=== PATIENT | male | born 1970 | race African-American/Black ===

== ENCOUNTER 2016-12-02 14:48 | Inpatient (IN) | payer OTHER ==
[~2016-12-02] VITALS: Ht 185.4 cm; Wt 120.0 kg
[2016-12-02] VITALS (17 sets, daily range): BP systolic 100–151; BP diastolic 55–84; PULSE 66–86; RESP 12–22; TEMP 97.8; Ht 185.4 cm; Wt 120.0 kg
[~2016-12-02 14:48] MED LIST: BEN50 PO; BENA20TA48 PO; CEFAZOLIN 1 GM INJ ONE; EPIN0.3P4 INJ; NORCO; PRED20TA PO; ZOC10 PO
[2016-12-02] MEDS ORDERED: morphine 4 MG/ML VIAL IV STA (15:15)
[2016-12-02] MEDS ORDERED: SOD CHLORIDE 0.9% 1,000 ML IV STA (15:15)
[2016-12-02] MEDS ORDERED: ONDANSETRON 4 MG INJ IV STA (15:15)
[2016-12-02 15:49] LABS: BASOPHILS % 0.3 % (0.0-2.0); EOSINOPHILS % 0.3 % (0.0-7.0); HEMOGLOBIN 15.1 g/dl (14.0-18.0); LYMPHOCYTES # 1.4 10^3/ul (0.8-2.9); LYMPHOCYTES % 16.2 % (15.0-51.0); MEAN CORPUSCULAR HEMOGLOBIN 27.9 pg (29.0-33.0); MEAN CORPUSCULAR HGB CONC 32.9 g/dl (32.0-37.0); MEAN PLATELET VOLUME 10.8 fl (7.4-10.4); MONOCYTE # 0.1 10^3/ul (0.3-0.9); MONOCYTES % 1.3 % (0.0-11.0); NEUTROPHIL # 7.3 10^3/ul (1.6-7.5); NEUTROPHILS % 81.9 % (39.0-77.0); PLATELET COUNT 174 10^3/UL (140-440); RED BLOOD COUNT 5.41 10^6/ul (4.70-6.10); RED CELL DISTRIBUTION WIDTH 14.6 % (11.5-14.5); UNCORRECTED WBC 8.9 10^3/ul (4.8-10.8); WHITE BLOOD COUNT 8.9 10^3/ul (4.8-10.8)
[2016-12-02 16:00] LABS: ALBUMIN 4.6 g/dl (3.3-4.9); CONDITION 1; LH ANALYZER COMMENTS 1; NUCLEATED RED BLOOD CELLS # 0.2 10^3/ul (0.0-0.0); SUSPECT 1
[2016-12-02 16:01] LABS: POTASSIUM 3.5 mmol/L (3.5-5.1)
--- NOTE | 2016-12-02 16:01 | ERD ---
ER Documentation Chief Complaint Date/Time DATE: 12/02/16 TIME: 15:59 Chief Complaint NAUSEA, VOMITING, ONSET LAST NIGHT, RIGHT GROIN PAIN, HX OF HERNIA HPI 46-year-old male who is a very poor historian and poorly cooperative with history. It appears that the patient had sudden onset of nausea and vomiting yesterday evening. The patient does have a history of right inguinal hernia repair. He is describing right lower quadrant right inguinal pain that is moderate to severe. The vomiting is nonbloody nonbilious. He denies any diarrhea. He did eat [place] [employer]. last night. ROS All systems reviewed and are negative except as per history of present illness. Medications Home Meds Reported Medications Hydrocodone Bit-Acetaminophen (Hydrocodone Bit-APAP) 5-325MG Tablet, 1 TAB PO BID Y for PAIN, TAB 12/02/16 Losartan Potassium* (Losartan Potassium*) 100 Mg Tablet, 100 MG PO DAILY, TAB 12/02/16 Amlodipine Besylate* (Norvasc*) 5 Mg Tablet, 5 MG PO DAILY, TAB 12/02/16 Simvastatin* (Zocor*) 40 Mg Tablet, 40 MG PO QHS, #30 TAB 12/02/16 Discontinued Reported Medications [[place]] No Conflict Check, PRN 05/30/14 Simvastatin (Simvastatin) 10 Mg Tablet, 10 MG PO HS, TAB 05/30/14 Benazepril Hcl* (Benazepril Hcl*) 20 Mg Tablet, 25 MG PO DAILY, TAB 05/30/14 Discontinued Scripts Epinephrine (Epipen 2-Estuardo) 0.3 Mg/0.3 Ml Pen.injctr, 1 EA INJ ONCE Y for ALLERGIC REACTION, #1 EA Prov:AMY ESTEVES PA-C 06/09/16 Diphenhydramine Hcl* (Benadryl*) 50 Mg Cap, 50 MG PO Q6 Y for swelling, #30 CAP Prov:AMY ESTEVES PA-C 06/09/16 Prednisone* (Prednisone*) 20 Mg Tab, 40 MG PO DAILY for 4 Days, TAB Prov:AMY ESTEVES PA-C 06/09/16 Allergies Allergies: Coded Allergies: No Known Allergy (Unverified , 12/02/16) PMhx/Soc History of Surgery: Yes (HERNIA) Anesthesia Reaction: Yes (DIFFICULT INTUBATION) Hx Neurological Disorder: No Hx Respiratory Disorders: No Hx Cardiac Disorders: No Hx Psychiatric Problems: No Hx Miscellaneous Medical Probl: No Hx Alcohol Use: Yes (CONIAC 1 GLASS ONCE IN A WHILE) Hx Substance Use: Yes (MARJUANA LAST ON 06/08/16 0900) Hx Tobacco Use: No FmHx Family History: No diabetes Physical Exam Vitals Vital Signs Date Time Temp Pulse Resp B/P Pulse Ox O2 Delivery O2 Flow Rate FiO2 12/02/16 15:29 97.5 58 17 191/104 98 Physical Exam General: Diaphoretic and uncomfortable Head: Normocephalic, atraumatic. Eyes: Pupils equally reactive, EOM intact ENT: Moist mucous membranes Neck: Supple, no lymphadenopathy Respiratory: Lungs clear bilaterally, no distress Cardiovascular: RRR, no murmurs, rubs, or gallops Abdominal: Soft, focal tenderness of the right lower quadrant and also to the right inguinal region, no focal masses or hernias palpated : Uncircumcised, slightly high riding right testicle, no significant swelling limited reflex exam MSK: No edema, no unilateral swelling, 5/5 strength Neurologic: Alert and oriented, moving all extremities, normal speech, no focal weakness, no cerebellar signs Skin: No rash Psych: Normal mood Result Diagram: 12/02/16 1545 12/02/16 1545 Results 24 hrs Laboratory Tests Test 12/02/16 15:45 Alanine Aminotransferase (ALT/SGPT) 25IU/L Albumin 4.6g/dl Albumin/Globulin Ratio 1.09 Alkaline Phosphatase 80IU/L Anion Gap 21 Aspartate Amino Transf (AST/SGOT) 27IU/L Basophils # 0.010^3/ul Basophils % 0.3% Blood Morphology Comment Blood Urea Nitrogen 13mg/dl Calcium Level 9.6mg/dl Carbon Dioxide Level 26mmol/L Chloride Level 105mmol/L Creatinine 1.16mg/dl Direct Bilirubin 0.00mg/dl Eosinophils # 0.010^3/ul Eosinophils % 0.3% Globulin 4.20g/dl Glucose Level 100mg/dl Hematocrit 46.0% Hemoglobin 15.1g/dl Indirect Bilirubin 0.2mg/dl Lipase 47U/L Lymphocytes # 1.410^3/ul Lymphocytes % 16.2% Mean Corpuscular Hemoglobin 27.9pg Mean Corpuscular Hemoglobin Concent 32.9g/dl Mean Corpuscular Volume 85.0fl Mean Platelet Volume 10.8fl Monocytes # 0.110^3/ul Monocytes % 1.3% Neutrophils # 7.310^3/ul Neutrophils % 81.9% Nucleated Red Blood Cells # 0.210^3/ul Nucleated Red Blood Cells % 2.0/100WBC Platelet Count 36369^3/UL Potassium Level 3.5mmol/L Red Blood Count 5.4110^6/ul Red Cell Distribution Width 14.6% Sodium Level 148mmol/L Total Bilirubin 0.2mg/dl Total Protein 8.8g/dl White Blood Count 8.910^3/ul Current Medications Medications (Trade) Dose Ordered Sig/Pia Route PRN Reason Start Time Stop Time Status Last Admin Dose Admin Sodium Chloride (NS) 1,000 ml @ 1,000 mls/hr Q1H STAT IV 12/02/16 15:15 12/02/16 16:14 DC 12/02/16 15:55 Morphine Sulfate (morphine) 4 mg ONCE STAT IV 12/02/16 15:15 12/02/16 15:18 DC 12/02/16 15:55 Ondansetron HCl (Zofran Inj) 4 mg ONCE STAT IV 12/02/16 15:15 12/02/16 15:18 DC 12/02/16 15:54 Procedures/MDM EKG, MONITORS, & DIAGNOSTIC IMAGING: CT abdomen and pelvis: IMPRESSION: 1. There is a 4 mm right mid ureteral calculus resulting in mild to moderate right hydroureter and hydronephrosis. 2. Additional numerous small nonobstructing bilateral renal calculi. 2. Bilateral renal low density lesions likely cysts. 4. No evidence of intra-abdominal free air fluid abscesses or lymphadenopathy. . RPTAT:AAJJ Ultrasound scrotum: IMPRESSION: 1. No flow identified in the right testis consistent with testicular torsion. 2. Small left hydrocele. 3. Small right epididymal cyst. Call report: A call report was made to MICHELLE Grande at approximately 04:30 p.m. on 12/02/2016. RPTAT: AA LAB INTERPRETATION: No significant hepatobiliary obstruction MEDICAL DECISION MAKING: The patient is diaphoretic and appears to be uncomfortable. He has right lower quadrant abdominal pain. This could represent possible acute appendicitis however given the patient's hernia surgical history consider possible inguinal hernia. I cannot palpate a hernia but the patient has tenderness along the inguinal tract. The patient does describe testicular pain but his pain seems to be more elevated from the scrotum. Consider possible torsion therefore ultrasound imaging would be beneficial. Symptoms started around 9 AM this morning. The patient will benefit from laboratory testing and CT imaging of the abdomen and pelvis. Also consider possible bowel obstruction. ER COURSE: The patient's ultrasound was reported as possible torsion with no flow noted. The call was noted around [address] Angel was notified and at the bedside by 4:45 PM. He is evaluated the patient and feel the patient would benefit from being taken to the operating for exploration, detorsion and likely testicular fixation. CT imaging is pending at this time however we have a clear etiology for the patient's pain. It is unlikely that the patient has incarcerated hernia or bowel obstruction at this time. The admitting team will follow up on CAT scan imaging. The patient was taken emergently to the operating room by Dr. Angel. 5:[address] shows evidence of a right-sided 4 mm stone. This could be contributing his pain. I will be out of the patient has 2 diagnoses concurrently, Dr. Angel notified. However given the concern for possible torsion and no flow to the right testicle detorsion would be indicated. I kept the patient and/or family informed of laboratory and diagnostic imaging results throughout the emergency room course. DISPOSITION PLAN: Emergently taken to the operating room CONSULTATION: Accepting care team and consultations: I discussed the current laboratory data, diagnostic imaging and emergency care provided. Admitting team: Dr. Maxwell Admitting team indication: Insurance directed Consulting services: Dr. Angel, urology Critical Care Note: Total time: 30 minutes Indication/Organ System Threat: Right testicular torsion I spent the above amount of critical care time with the patient, not including billable procedures. This included chart review, consultations, repeat bedside evaluations, and titration of appropriate medications to prevent cardiopulmonary or respiratory collapse. Departure Diagnosis: Primary Impression: Testicular torsion Additional Impressions: Nausea and vomiting Vomiting type: unspecified Vomiting Intractability: unspecified Qualified Code: R11.2 - Nausea and vomiting, intractability of vomiting not specified, unspecified vomiting type Ureterolithiasis Condition: MARK Mariscal MD Dec 02, 2016 16:01
[2016-12-02 16:03] LABS: ALBUMIN/GLOBULIN RATIO 1.09; BILIRUBIN,INDIRECT 0.2 mg/dl (0-1.1); BILIRUBIN,TOTAL 0.2 mg/dl (0.2-1.3); CREATININE 1.16 mg/dl (0.61-1.24); TOTAL PROTEIN 8.8 g/dl (6.1-8.1)
[2016-12-02 16:04] LABS: CALCIUM 9.6 mg/dl (8.4-10.2)
--- NOTE | 2016-12-02 16:29 | RADRPT ---
PROCEDURE: Scrotal ultrasound CLINICAL INDICATION: Scrotal pain TECHNIQUE: Scrotal ultrasound was performed in multiple obliquities. Balderrama scale and color imaging was performed. Images were reviewed on high resolution PACS monitors. COMPARISON: None available FINDINGS: The testes are normal in size and echogenicity. There is no definitive flow identified in the right testis. There is normal flow in the left testis. No testicular mass or cyst is identified. There i s a small left hydrocele. There is no definite right hydrocele. Normal flow seen epididymides. There is a 3 mm right epididymal cyst.. There is no evidence for a varicocele. IMPRESSION: 1. No flow identified in the right testis consistent with testicular torsion. 2. Small left hydrocele. 3. Small right epididymal cyst. Call report: A call report was made to MICHELLE Grande at approximately 04:30 p.m. on 12/02/2016. RPTAT: AA .Jordan Gallegos MD, Date Time Electronically viewed and signed by .Jordan Gallegos MD, MD on 12/02/2016 16:29 .B/
[2016-12-02] MEDS ORDERED: SIMV40TA2 PO (16:47)
[2016-12-02] MEDS ORDERED: AMLO5TAB4 PO (16:48)
[2016-12-02] MEDS ORDERED: LOSA100T7 PO (16:49)
[2016-12-02] MEDS ORDERED: HYDR-3498 PO (16:51)
--- NOTE | 2016-12-02 17:10 | RADRPT ---
PROCEDURE: CT Abdomen and Pelvis without contrast. CLINICAL INDICATION: Lower abdominal pain TECHNIQUE: Axial imaging was obtained through the abdomen pelvis without intravenous contrast admi nistration using a multi-slice CT scanner. Standard CT scan of the pelvis without contrast protocol s were performed.The total exam CTDI equals 20.8 mGy and the total exam DLP equals 1420.82 mGy-cm. COMPARISON: None. FINDINGS: There is a 4 mm mid right ureteral calculus resulting in mild to moderate right hydronephrosis and hydroureter. There are multiple bilateral small nonobstructing renal calculi. No evidence of left hydronephrosis. The urinary bladder appears unremarkable. In the into the right kidney is a 1.5 cm low density lesion likely a cyst. In the medial inferior left kidney is a 0.6 cm low density lesio n likely a cyst. No other ventral masses bilaterally. The liver spleen pancreas and adrenal glands are normal in size configuration without focal lesions. New the gallbladder is unremarkable. Ther e is no evidence of biliary ductal dilation. Negative for intra-abdominal free air free fluid absce sses or lymphadenopathy. The right left testes are seen within the right left inguinal canals. Ap mmend clinical correlation. There is atherosclerotic vascular disease of the abdominal aorta but no aneurysm or periaortic fluid collections. There is cylindrical bronchiectasis involving the lung bases. There is parenchymal change at the left base consistent with scarring. The lung bases worse unremarkable. There are degenerative changes lower thoracic and lumbar spine. The osseous structu res are otherwise unremarkable. IMPRESSION: 1. There is a 4 mm right mid ureteral calculus resulting in mild to moderate right hydroureter and hydronephrosis. 2. Additional numerous small nonobstructing bilateral renal calculi. 2. Bilateral renal low density lesions likely cysts. 4. No evidence of intra-abdominal free air fluid abscesses or lymphadenopathy. . RPTAT:AAJJ Physician Savanah Date Time Electronically viewed and signed by Physician Savanah on 12/02/2016 17:09 /
--- NOTE | 2016-12-02 17:26 | CONS ---
Date/Time of Note Date/Time of Note DATE: 12/02/16 TIME: 17:20 Consultation Date/Type/Reason Admit Date/Time This is Dr. Bang Angel dictating a urology consultation on Bo Kay This is a 46-year-old black male who developed acute onset of right-sided lower abdominal and testicular pain this morning while lying in bed He came to the [facility] emergency room where a scrotal ultrasound showed a high riding right testicle with no flow. Physical examination Patient is a healthy-appearing black male who I examined in the CT exam room. His abdomen is soft no abdominal masses no CVA tenderness. The right testicle is extremely tender though soft and minimally swollen however it is somewhat high riding left testicle is atrophic. Impression is right-sided testicular torsion documented on scrotal ultrasound. Plan the patient will go urgently to surgery for right sided testicular detorsion and bilateral testicular fixation. Patient understands the procedure potential risks complications agrees to proceed and I feel is well-informed. Social History Smoking Status: Current some day smoker Exam/Review of Systems Vital Signs Vitals Vital Signs Date Time Temp Pulse Resp B/P Pulse Ox O2 Delivery O2 Flow Rate FiO2 12/02/16 15:29 97.5 58 17 191/104 98 Results Result Diagram: 12/02/16 1545 12/02/16 1545 Results 24 hrs Laboratory Tests Test 12/02/16 15:45 Alanine Aminotransferase (ALT/SGPT) 25 Albumin 4.6 Albumin/Globulin Ratio 1.09 Alkaline Phosphatase 80 Anion Gap 21 H Aspartate Amino Transf (AST/SGOT) 27 Basophils # 0.0 Basophils % 0.3 Blood Morphology Comment Blood Urea Nitrogen 13 Calcium Level 9.6 Carbon Dioxide Level 26 Chloride Level 105 Creatinine 1.16 Direct Bilirubin 0.00 Eosinophils # 0.0 Eosinophils % 0.3 Globulin 4.20 H Glucose Level 100 Hematocrit 46.0 Hemoglobin 15.1 Indirect Bilirubin 0.2 Lipase 47 Lymphocytes # 1.4 Lymphocytes % 16.2 Mean Corpuscular Hemoglobin 27.9 L Mean Corpuscular Hemoglobin Concent 32.9 Mean Corpuscular Volume 85.0 Mean Platelet Volume 10.8 H Monocytes # 0.1 L Monocytes % 1.3 Neutrophils # 7.3 Neutrophils % 81.9 H Nucleated Red Blood Cells # 0.2 H Nucleated Red Blood Cells % 2.0 H Platelet Count 174 Potassium Level 3.5 Red Blood Count 5.41 Red Cell Distribution Width 14.6 H Sodium Level 148 H Total Bilirubin 0.2 Total Protein 8.8 H White Blood Count 8.9 BANG ANGEL MD Dec 02, 2016 17:25
[2016-12-02] MEDS ORDERED: ACETAMINOPHEN 325 MG TAB PO PRN ×2 (17:30→19:30)
[2016-12-02] MEDS ORDERED: ONDANSETRON 4 MG INJ IV PRN ×3 (17:30→19:30)
[2016-12-02] MEDS ORDERED: METOCLOPRAMIDE 10 MG INJ ONE (17:51)
[2016-12-02] MEDS ORDERED: DEXAMETHASONE 4 MG/ML 1 ML INJ ONE ×2 (17:52→18:43)
[2016-12-02] MEDS ORDERED: BUPIVACAINE 0.5% (SDV) 30 ML INJ ONE (17:58)
[2016-12-02] MEDS ORDERED: PROPOFOL 40 ML ONE (18:00)
[2016-12-02] MEDS ORDERED: MIDAZOLAM 1 MG/ML 2 ML INJ ONE (18:00)
[2016-12-02] MEDS ORDERED: ONDANSETRON 4 MG INJ ONE (18:01)
[2016-12-02] MEDS ORDERED: KETOROLAC 30 MG INJ ONE (18:43)
[2016-12-02] MEDS ORDERED: FAMOTIDINE 20 MG INJ ONE (18:43)
[2016-12-02] MEDS ORDERED: ACETAMINOPHEN 1000MG/100ML IV 100 ML ONE (18:44)
[2016-12-02] MEDS ORDERED: BACITRACIN/POLYMYXIN 28.35 GM OINT TOP ONE (18:55)
[2016-12-02] MEDS ORDERED: MEPERIDINE 100 MG INJ ONE (18:58)
[2016-12-02] MEDS ORDERED: EPHEDrine SULFATE 50 MG/5 ML SYG IV PRN (19:00)
[2016-12-02] MEDS ORDERED: hydrALAzine 20 MG INJ IV PRN (19:00)
[2016-12-02] MEDS ORDERED: DIPHENHYDRAMINE 50 MG INJ IV PRN (19:00)
[2016-12-02] MEDS ORDERED: FENTAnyl 50 MCG/ML VIAL IV PRN ×3 (19:00)
[2016-12-02] MEDS ORDERED: HYDROmorphONE (0.2 MG/ML) 10ML SYG IV PRN ×3 (19:00)
[2016-12-02] MEDS ORDERED: MEPERIDINE 25 MG INJ IV PRN (19:00)
[2016-12-02] MEDS ORDERED: morphine (1 MG/ML) 10ML SYRINGE IV PRN ×3 (19:00)
[2016-12-02] MEDS ORDERED: LABETALOL HCL 20MG INJ IV PRN (19:00)
[2016-12-02] MEDS: D5W-0.45 NACL + KCL 20 MEQ 1,000 ML IV SCH (19:06)
[2016-12-02] MEDS ORDERED: RACEPINEPHRINE 2.25%(NEB) 0.5 ML AMP ONE (19:10)
[2016-12-02] MEDS ORDERED: RACEPINEPHRINE 2.25%(NEB) 0.5 ML AMP HHN ONE (19:30)
[2016-12-02] MEDS ORDERED: KETOROLAC 30 MG INJ IV PRN (19:30)
[2016-12-02] MEDS ORDERED: HYDROmorphONE 1 MG/ML SYG IV PRN (19:30)
[2016-12-02] MEDS ORDERED: HYDROCODONE/APAP (5/325) TAB PO PRN (19:30)
[2016-12-02] MEDS: ATORVASTATIN 20 MG TAB PO SCH (21:32)
[2016-12-02] MEDS: FAMOTIDINE 20 MG TAB PO SCH (21:32)
[2016-12-02] MEDS: SOD CHLORIDE 0.9% 1,000 ML IV SCH (21:37)
[2016-12-03] MEDS: ONDANSETRON 4 MG INJ IV PRN ×2 (02:15→19:58)
--- NOTE | 2016-12-03 04:10 | HP ---
DATE OF ADMISSION: 12/02/2016 PRESENTING COMPLAINT: Right groin pain, nausea, vomiting. HISTORY OF PRESENTING COMPLAINT: My history is obtained from the patient's caregiver. The patient has been medicated and is sleepy and is actually a very poor historian. The patient has a history o f developmental delay. The caregiver is not very cooperative with the history and it is hard to tell exactly what kind of delays, but because of that, he has a caregiver who tells me that his only oth er history is high blood pressure as well as dyslipidemia. He has a right inguinal hernia repair in the past, but he developed a sudden onset of nausea and vomiting yesterday that has persisted and i s associated with pain in his right groin. There does not seem to have been any fever, no blood in t he vomit or in his stool. No diarrhea. An ultrasound in the emergency room was concerning for test icular torsion without blood flow to the testicles and as such, he is being admitted for urgent urol ogy review and intervention. PAST MEDICAL HISTORY: 1. High blood pressure. 2. Dyslipidemia. 3. Developmental delay. PAST SURGICAL HISTORY: Right inguinal hernia repair. ALLERGIES: THE PATIENT HAS NO KNOWN DRUG ALLERGIES. HOME MEDICATIONS: 1. [place] 2. Losartan. 3. Amlodipine. 4. Simvastatin. REVIEW OF SYSTEMS: A 12-point review of system was done. Pertinent findings are as noted in HPI. SOCIAL HISTORY: Positive for marijuana use, occasional alcohol use, but no tobacco use. FAMILY HISTORY: Negative for premature coronary artery disease, per caregiver. PHYSICAL EXAMINATION: VITAL SIGNS: Temperature 97.5, pulse 58, respirations 17, blood pressure 191/104. GENERAL: The patient was sleeping comfortably, arousable, however, lethargic. HEENT: Head is normocephalic. Pupils equal and reactive. Mucous membranes are moist. NECK: Supple. CHEST: Clear. CARDIOVASCULAR: S1 and S2. ABDOMEN: Soft with right lower quadrant tenderness without significant right flank pain though. GENITOURINARY: Uncircumcised, high-riding testicles, no cellulitis, no tenderness. EXTREMITIES: No edema. SKIN: No rash. LABORATORY VALUES: WBC normal, hemoglobin normal. On his basic metabolic profile, though, his sodi um was slightly elevated at 148. LFTs are unremarkable. Platelet count was normal. Lipase was nor mal. Creatinine and BUN were all within normal range. Ultrasound of his scrotum showed no flow identified in the right testis consistent with testicular t orsion, a small left hydrocele and a small right epididymal cyst. IMAGING: CT of the abdomen and pelvis showed a 4 mm right mid ureteral calculus resulting in mild t o moderate right hydroureter and hydronephrosis as well as additional small nonobstructing bilateral renal calculi, bilateral renal low density lesions, probably cysts, but no evidence of intra-abdomi nal free air fluid, abscess or lymphadenopathy. ASSESSMENT: 1. Right testicular torsion with no flow to the right testis. 2. Nausea, vomiting, abdominal pain, likely secondary to #1. 3. A 4 mm mid right ureteral calculus that is obstructing causing moderate right hydroureter and hy dronephrosis. 4. Numerous nonobstructing renal calculi. 5. Uncontrolled high blood pressure versus pain induced. 6. Dyslipidemia. 7. Mild hypernatremia. PLAN OF CARE: Urology consultation for prompt management. Pain control and supportive care as well as antiemetics. IV fluid hydration to help with passing a urinary stone. Defer to urology and the need for the Aldrich catheter, if necessary. Serial labs and supportive care. I have discussed the plan of care with the patient's caregiver as the patient does not seem to be ab le to discuss with me at this time. I have answered questions. Evaluation time has been about 40 m inutes. For clarification and further information, please review the patient's chart and my orders. Dictated By: KAR REYES MD, BA/GANESH Conf#: [id number] DID#: [id number]
[2016-12-03] MEDS: D5W-0.45 NACL + KCL 20 MEQ 1,000 ML IV SCH ×2 (05:06→15:06)
[2016-12-03 05:30] LABS: EOSINOPHILS % 0.1 % (0.0-7.0); HEMOGLOBIN 13.9 g/dl (14.0-18.0); LYMPHOCYTES # 1.2 10^3/ul (0.8-2.9); LYMPHOCYTES % 8.8 % (15.0-51.0); MEAN CORPUSCULAR HEMOGLOBIN 28.1 pg (29.0-33.0); MEAN CORPUSCULAR VOLUME 85.1 fl (82.0-101.0); MEAN PLATELET VOLUME 11.4 fl (7.4-10.4); MONOCYTE # 0.2 10^3/ul (0.3-0.9); MONOCYTES % 1.4 % (0.0-11.0); NEUTROPHIL # 12.8 10^3/ul (1.6-7.5); NEUTROPHILS % 89.7 % (39.0-77.0); PLATELET COUNT 173 10^3/UL (140-440); RED BLOOD COUNT 4.94 10^6/ul (4.70-6.10); UNCORRECTED WBC 14.3 10^3/ul (4.8-10.8); WHITE BLOOD COUNT 14.3 10^3/ul (4.8-10.8)
[2016-12-03 05:49] LABS: ALBUMIN 3.8 g/dl (3.3-4.9); POTASSIUM 4.1 mmol/L (3.5-5.1)
[2016-12-03 05:51] LABS: CREATININE 1.59 mg/dl (0.61-1.24)
[2016-12-03 05:52] LABS: BILIRUBIN,INDIRECT 0.3 mg/dl (0-1.1); BILIRUBIN,TOTAL 0.3 mg/dl (0.2-1.3); CALCIUM 8.7 mg/dl (8.4-10.2); TOTAL PROTEIN 7.4 g/dl (6.1-8.1)
[2016-12-03 05:53] LABS: MAGNESIUM 1.7 mg/dl (1.7-2.5)
[2016-12-03] MEDS: SOD CHLORIDE 0.9% 1,000 ML IV SCH ×3 (06:03→18:30)
[2016-12-03 06:22] LABS: CONDITION 1
[2016-12-03 08:20] VITALS: BP 139/83; RESP 20
[2016-12-03] MEDS: FAMOTIDINE 20 MG TAB PO SCH ×2 (08:22→19:49)
[2016-12-03] MEDS: LOSARTAN 50 MG TAB PO SCH (08:22)
[2016-12-03] MEDS: AMLODIPINE 5 MG TAB PO SCH (08:23)
--- NOTE | 2016-12-03 12:59 | OPR ---
DATE OF OPERATION: 12/02/2016 PREOPERATIVE DIAGNOSIS: Right-sided testicular torsion. POSTOPERATIVE DIAGNOSIS: Right-sided testicular torsion. OPERATION PERFORMED: Detorsion right testicle with bilateral testicular fixation. SURGEON: Bang Angel MD INDICATIONS FOR SURGERY: This unfortunate 46-year-old male with some mental issues developed severe right-sided testicular pain, right-sided lower abdominal pain and groin pain. He came to the emerg ency room where a flow study of the right testicle showed no flow compatible with an acute torsion. There was good flow on the opposite side. The testicle was also found to be high riding. The he ent also had a CT scan which showed a 4 mm right ureteral stone. OPERATIVE FINDINGS: The patient had what appeared to be a swollen right epididymis from a recent to rsion. The testicle itself appeared to be normal. DESCRIPTION OF PROCEDURE: Under general anesthesia, the patient was prepped and draped in the supin e position. At longitudinal midline incision was made in the scrotum, carried down through skin and subcutaneous tissue. The plane between the right and left scrotal compartments was developed. The right side was opened. The tunica vaginalis was opened and hydrocele fluid was released. Inspecti on of the testicle revealed that it had a transverse lie, but there appeared to be no complete torsi on at this time. The epididymis did show signs, it was deeply congested compatible with a recent to rsion. At this point, the testicle was fixed to the midline raphae with 3 sutures of 3-0 Prolene. The sutu res were on the medial side of the right testicle to the midline raphae. The testicle was then brou ght back into the wound and a similar procedure performed on the left side. The appendix testis on the left side was excised. At this point, the wound was irrigated with saline solution. The dartos musculature was closed with a 3-0 Vicryl. Skin was closed with a 3-0 chromic interrupted. A sterile dressing was placed. Flu ffs and a scrotal support were placed. The patient was awakened and brought to recovery room in sta ble condition. Dictated By: BANG CORONEL/GANESH Conf#: [id number] DID#: [id number]
[2016-12-03] MEDS ORDERED: TAMSULOSIN (SR) 0.4 MG CAP PO ONE (13:00)
[2016-12-03] MEDS ORDERED: TAMS-14 PO (14:02)
[2016-12-03] MEDS ORDERED: HYDR-3498 PO (14:02)
--- NOTE | 2016-12-03 14:06 | PDOCDIS ---
Discharge Instructions DIAGNOSIS Discharge Diagnosis: testicular torsion CONDITION Patient Condition: Stable HOME CARE INSTRUCTIONS: Diet Instructions: Regular ACTIVITY: Activity Restrictions: Slowly Increase Activity Rest between Activity Avoid heavy lifting Bathing Restrictions: Tub Bath OTHER ORDERS: Other Orders: Call Dr Cagle's office for followup Name, Degree: Trip Cagle MD Specialty: Urology Comments: Office Address: [address] [place] [address] Office KAR REYES Dec 03, 2016 14:06
[2016-12-03] MEDS: ATORVASTATIN 20 MG TAB PO SCH (19:49)
[2016-12-03] MEDS: HYDROCODONE/APAP (5/325) TAB PO PRN (19:49)
[2016-12-03 20:00] VITALS: BP 157/93; PULSE 78; RESP 17
[2016-12-04 00:10] VITALS: BP 148/78; RESP 20
[2016-12-04] MEDS: SOD CHLORIDE 0.9% 1,000 ML IV SCH ×4 (02:30→20:19)
[2016-12-04 05:04] LABS: BASOPHIL # 0.1 10^3/ul (0.0-0.1); BASOPHILS % 0.4 % (0.0-2.0); CONDITION 1; HEMATOCRIT 38.2 % (42.0-52.0); HEMOGLOBIN 12.4 g/dl (14.0-18.0); LH ANALYZER COMMENTS 1; LYMPHOCYTES # 2.3 10^3/ul (0.8-2.9); LYMPHOCYTES % 16.6 % (15.0-51.0); MEAN CORPUSCULAR HEMOGLOBIN 27.6 pg (29.0-33.0); MEAN CORPUSCULAR HGB CONC 32.5 g/dl (32.0-37.0); MEAN CORPUSCULAR VOLUME 84.8 fl (82.0-101.0); MEAN PLATELET VOLUME 10.4 fl (7.4-10.4); MONOCYTE # 0.9 10^3/ul (0.3-0.9); MONOCYTES % 6.7 % (0.0-11.0); NEUTROPHIL # 10.5 10^3/ul (1.6-7.5); NEUTROPHILS % 76.3 % (39.0-77.0); PLATELET COUNT 157 10^3/UL (140-440); RED CELL DISTRIBUTION WIDTH 14.2 % (11.5-14.5); SUSPECT 1; UNCORRECTED WBC 13.8 10^3/ul (4.8-10.8); WHITE BLOOD COUNT 13.8 10^3/ul (4.8-10.8)
[2016-12-04 05:50] LABS: POTASSIUM 3.4 mmol/L (3.5-5.1)
[2016-12-04 05:53] LABS: CALCIUM 8.3 mg/dl (8.4-10.2); CREATININE 1.37 mg/dl (0.61-1.24)
[2016-12-04 07:42] VITALS: BP 206/111; RESP 16
[2016-12-04 08:00] VITALS: BP 216/111; PULSE 86; RESP 16
[2016-12-04] MEDS ORDERED: hydrALAzine 20 MG INJ IV PRN (08:00)
[2016-12-04] MEDS: ONDANSETRON 4 MG INJ IV PRN (08:00)
[2016-12-04 08:19] VITALS: BP 177/111; PULSE 71; RESP 16
[2016-12-04] MEDS: FAMOTIDINE 20 MG TAB PO SCH ×2 (09:32→20:19)
[2016-12-04] MEDS: LOSARTAN 50 MG TAB PO SCH (09:32)
[2016-12-04] MEDS: AMLODIPINE 5 MG TAB PO SCH (09:32)
[2016-12-04 10:22] VITALS: BP 166/89; RESP 74
--- NOTE | 2016-12-04 12:10 | PN ---
DATE: 12/03/2016 SUBJECTIVE: The patient is feeling much better, but he still has some soreness in his testicles fro m the surgery, and it is still on the right side. PHYSICAL EXAMINATION VITAL SIGNS: Reviewed and . GENERAL: Alert and oriented, with no distress. HEAD: Normocephalic. Pupils are equal and reactive. Mucous membranes were moist. NECK: Supple. CHEST: Clear. ABDOMEN: Soft, nontender, nondistended. Normoactive bowel sounds. GENITOURINARY: There was still some tenderness on the right, and the surgical site was clean and dry, but somewhat tender. LOWER EXTREMITIES: Negative for edema. LABS: Were reviewed. I noted patient's serum creatinine has trended up, as well as his WBC count, which is likely a stress reaction. ASSESSMENT: Is as follows: 1. Right testicular torsion of the right testis, status post emergent laparoscopy that showed no ev idence of torsion. 2. and abdominal pain secondary to #1, but could be secondary to obstructing right ureteral stone, much improved. 3. A 4 mm calculus, question moderate right-sided hydroureter and hydronephrosis for which U rology has recommended just straining of the urine, and the likelihood that the stone will pass. 4. nonobstructing renal calculi. 5. . 6. Dyslipidemia. 7. insufficiency, status post renal from the stone. 8. Leukocytosis, likely stress induced. PLAN: I will observe the patient in-house for one more night, and even though the patient has been cleared for outpatient management per urology, I will increase IV fluids and change to normal saline . I will continue pain medication and supportive care. Continue to strain urine. Repeat KUB in a .m. to assess for possible migration of stones, and further interventions will depend on our finding s. Dictated By: KAR REYES MD BA/NTS Conf#: [id number] DID#: [id number]
--- NOTE | 2016-12-04 12:37 | RADRPT ---
PROCEDURE: XR Abdomen. CLINICAL INDICATION: Abdomen pain. TECHNIQUE: AP supine abdomen x-ray. COMPARISON: CT scan of the abdomen and pelvis dated 12/02/2016 which demonstrated nonobstructing b ilateral renal calculi and an obstructing 0.4 cm mid right ureteral calculus. FINDINGS: The bowel gas pattern is normal. There is no evidence of obstruction. The calculi seen on prior CT scan are not visualized with plain radiograph. The osseus structures are unremarkable. IMPRESSION: 1. Calculi seen on prior CT scan are not visualized with plain radiograph. 2. Otherwise unremarkable study. RPTAT: QQ .Chintan Caruso MD, MD Date Time Electronically viewed and signed by .Chintan Caruso MD, MD on 12/04/2016 12:37 .R/
[2016-12-04] MEDS ORDERED: CEPASTAT LOZENGE MT PRN (13:00)
[2016-12-04] MEDS ORDERED: CEFTRIAXONE 1 GM/50 ML (PMX) 50 ML IVPB SCH (13:00)
--- NOTE | 2016-12-04 14:08 | PN ---
Date/Time of Note Date/Time of Note DATE: 12/04/16 TIME: 12:40 Assessment/Plan VTE Prophylaxis VTE Prophylaxis Intervention: ambulation Lines/Catheters IV Catheter Type (from Nrsg): Peripheral IV Assessment/Plan Assessment/Plan 1. Nausea, vomiting: multifactorial 2 Radiologic concern for Right testicular torsion with no flow to the right testis:s/p -surgery that showed no torsion 3. A 4 mm mid right ureteral calculus that is obstructing causing moderate right hydroureter and hydronephrosis.: patient has passed the stone / f/u KUB 4. Numerous nonobstructing renal calculi. 5. Uncontrolled high blood pressure versus pain induced.: titrate meds 6. Dyslipidemia. 7. Mild hypernatremia: resolved 8. SATHYA likely 2/2 #3: improving 9. Sore throat likely from intubation during surgery: lozenges 10. Hypokalemia: replace plan: cleared for d/c per uro, but will observe in house one more day since he's still symptomatic and blood pressure and kidney function are still suboptimal. Will also start abx for possible UTI. Patient still has dysuria and is feeling chills. Subjective 24 Hr Interval Summary Free Text/Dictation sorethroat, Nausea and vomiting , elevated blood pressure Passed stone today with improvement in flank pain Exam/Review of Systems Vital Signs Vitals Vital Signs Date Time Temp Pulse Resp B/P Pulse Ox O2 Delivery O2 Flow Rate FiO2 12/04/16 10:22 98.4 72 74 166/89 99 12/04/16 08:19 Room Air 12/02/16 23:05 2.0 12/02/16 19:27 60 Intake and Output 12/03/16 12/03/16 12/04/16 14:59 22:59 06:59 Intake Total 2000 ml 450 ml Output Total 350 ml 1000 ml Balance 1650 ml -550 ml Exam Constitutional: alert, oriented Psych: nl mood/affect Head: atraumatic, normocephalic Eyes: PERRL Respiratory: clear to auscultation Cardiovascular: regular rate and rhythm Gastrointestinal: bowel sounds, non-tender, soft Extremities: No edema Results Result Diagram: 12/04/16 0426 12/04/16 0426 Results 24 hrs Laboratory Tests Test 12/04/16 04:26 Anion Gap 13 Basophils # 0.1 Basophils % 0.4 Blood Morphology Comment Blood Urea Nitrogen 19 Calcium Level 8.3 L Carbon Dioxide Level 26 Chloride Level 107 Creatinine 1.37 H Eosinophils # 0.0 Eosinophils % 0.0 Glucose Level 82 Hematocrit 38.2 L Hemoglobin 12.4 L Lymphocytes # 2.3 Lymphocytes % 16.6 Mean Corpuscular Hemoglobin 27.6 L Mean Corpuscular Hemoglobin Concent 32.5 Mean Corpuscular Volume 84.8 Mean Platelet Volume 10.4 Monocytes # 0.9 Monocytes % 6.7 Neutrophils # 10.5 H Neutrophils % 76.3 Nucleated Red Blood Cells # 0.0 Nucleated Red Blood Cells % 0.0 Platelet Count 157 Potassium Level 3.4 L Red Blood Count 4.50 L Red Cell Distribution Width 14.2 Sodium Level 143 White Blood Count 13.8 H Medications Medications Current Medications Ondansetron HCl (Zofran Inj) 4 mg Q6H PRN IV NAUSEA AND/OR VOMITING Last administered on 12/04/16 08:00; Admin Dose 4 MG; Start 12/02/16 at 19:30 Famotidine (Pepcid) 20 mg BID PO Last administered on 12/04/16 09:32; Admin Dose 20 MG; Start 12/02/16 at 21:00 Amlodipine Besylate (Norvasc) 5 mg DAILY PO Last administered on 12/04/16 09: 32; Admin Dose 5 MG; Start 12/03/16 at 09:00 Acetaminophen/ Hydrocodone Bitart ([place] (5/325)) 1 tab BID PRN PO PAIN Last administered on 12/03/16 19:49; Admin Dose 1 TAB; Start 12/02/16 at 19:30 Losartan Potassium (Cozaar) 100 mg DAILY PO Last administered on 12/04/16 09: 32; Admin Dose 100 MG; Start 12/03/16 at 09:00 Atorvastatin Calcium (Lipitor) 20 mg DAILY@21 PO Last administered on 19:49; Admin Dose 20 MG; Start 12/02/16 at 21:00 Hydromorphone HCl (Dilaudid) 0.5 mg Q6H PRN IV PAIN LEVEL 6-10 Last administered on 12/03/16 06:01; Admin Dose 0.5 MG; Start 12/02/16 at 19:30 Acetaminophen/ Hydrocodone Bitart ([place] (5/325)) 1 tab Q6H PRN PO PAIN LEVEL 6 -10; Start 12/02/16 at 19:30 Ketorolac Tromethamine (Toradol) 30 mg Q6H PRN IV PAIN; Start 12/02/16 at 19:30 ; Stop 12/05/16 at 19:29 Acetaminophen (Tylenol Tab) 650 mg Q6H PRN PO PAIN AND OR ELEVATED TEMP; Start 12/02/16 at 19:30 Ondansetron HCl 4 mg 4 mg Q6H PRN IV NAUSEA AND/OR VOMITING; Start 12/02/16 at 19:30 Sodium Chloride (NS) 1,000 ml @ 125 mls/hr Q8H IV Last administered on 11:45; Admin Dose 125 MLS/HR; Start 12/03/16 at 18:30 Hydralazine HCl (Apresoline) 10 mg Q6H PRN IV ELEVATED BLOOD PRESSURE Last administered on 12/04/16 08:17; Admin Dose 10 MG; Start 12/04/16 at 08:00 KAR REYES Dec 04, 2016 12:50
[2016-12-04] MEDS: DOCUSATE SODIUM 100 MG CAP PO SCH ×2 (14:21→20:19)
[2016-12-04] MEDS ORDERED: BISACODYL (EC) 5 MG TAB PO ONE (14:30)
[2016-12-04 18:18] LABS: ADD UMIC YES; URINE BILIRUBIN (Dip) NEGATIVE (NEGATIVE); URINE BLOOD (Dip) TRACE (NEGATIVE); URINE COLOR LT. YELLOW (YELLOW); URINE GLUCOSE (Dip) NEGATIVE (NEGATIVE); URINE KETONES (Dip) 15 (NEGATIVE); URINE LEUKOCYTE ESTERASE (Dip) NEGATIVE (NEGATIVE); URINE NITRITE (Dip) NEGATIVE (NEGATIVE); URINE TOTAL PROTEIN (Dip) NEGATIVE (NEGATIVE); URINE UROBILINOGEN (Dip) 0.2 E.U./dL (0.1-1.0)
[2016-12-04 18:52] LABS: URINE RBCS 0-2 /HPF (0)
[2016-12-04 18:55] LABS: SQUAMOUS EPITHELIAL CELL,UR FEW
[2016-12-04 18:56] LABS: BACTERIA,URINE RARE; TRICHOMONAS,URINE FEW
[2016-12-04 19:34] VITALS: BP 167/100; RESP 18
[2016-12-04] MEDS: ATORVASTATIN 20 MG TAB PO SCH (20:19)
[2016-12-04] MEDS: HYDROCODONE/APAP (5/325) TAB PO PRN (20:19)
[2016-12-05] VITALS: BP 147/96
[2016-12-05] MEDS: SOD CHLORIDE 0.9% 1,000 ML IV SCH (05:01)
[2016-12-05 05:57] LABS: BASOPHILS % 0.3 % (0.0-2.0); EOSINOPHILS % 0.2 % (0.0-7.0); HEMATOCRIT 40.5 % (42.0-52.0); HEMOGLOBIN 13.5 g/dl (14.0-18.0); LYMPHOCYTES # 2.8 10^3/ul (0.8-2.9); LYMPHOCYTES % 25.1 % (15.0-51.0); MEAN CORPUSCULAR HEMOGLOBIN 28.1 pg (29.0-33.0); MEAN CORPUSCULAR HGB CONC 33.3 g/dl (32.0-37.0); MEAN CORPUSCULAR VOLUME 84.4 fl (82.0-101.0); MEAN PLATELET VOLUME 11.9 fl (7.4-10.4); MONOCYTE # 0.6 10^3/ul (0.3-0.9); MONOCYTES % 5.6 % (0.0-11.0); NEUTROPHIL # 7.6 10^3/ul (1.6-7.5); NEUTROPHILS % 68.8 % (39.0-77.0); PLATELET COUNT 158 10^3/UL (140-440)
[2016-12-05 06:01] LABS: CONDITION 1; LH ANALYZER COMMENTS 1; SUSPECT 1
[2016-12-05 06:22] LABS: POTASSIUM 3.2 mmol/L (3.5-5.1)
[2016-12-05 06:24] LABS: CREATININE 0.99 mg/dl (0.61-1.24)
[2016-12-05 06:25] LABS: CALCIUM 8.7 mg/dl (8.4-10.2)
[2016-12-05 06:28] VITALS: BP 156/87
[2016-12-05 07:59] VITALS: BP 158/89; RESP 18
[2016-12-05 08:02] VITALS: BP 119/65; RESP 18
[2016-12-05] MEDS: DOCUSATE SODIUM 100 MG CAP PO SCH (09:01)
[2016-12-05] MEDS: LOSARTAN 50 MG TAB PO SCH (09:02)
[2016-12-05] MEDS: FAMOTIDINE 20 MG TAB PO SCH (09:03)
[2016-12-05] MEDS: AMLODIPINE 5 MG TAB PO SCH (09:03)
[2016-12-05] MEDS ORDERED: POTASSIUM CHLORIDE (SR) 20 MEQ TAB PO STA (10:32)
[2016-12-05] MEDS ORDERED: LEVO750T25 PO (10:37)
--- NOTE | 2016-12-05 12:00 | DS ---
DATE OF ADMISSION: 12/04/2016 DATE OF DISCHARGE: 12/05/2016 The patient came in with right groin pain, nausea, vomiting. He was admitted and seen by urology te am. He was found with right testicular torsion and underwent operation by the urologist, and there was detorsion of the right testicle performed with bilateral testicular fixation. The patient benito ated the procedure well. He was also found with a 4 mm right mid ureteral calculus that was found t o be obstructing, and the patient was able to pass that. His followup KUB was negative. Over the c ourse of her hospital stay, the patient's pain symptoms improved. His UA was actually negative, but he did have some dysuria, so he was started on low-dose antibiotics for that for presumed UTI, but the patient's groin pain symptoms improved, they were less so he was able to ambulate and tolerate a p.o. diet. He had some high blood pressure issues as well, but that was controlled with adjustment s to his medications, and he will be discharged home today in improved condition. DISCHARGE MEDICATIONS: He will be sent with: 1. Levaquin 750 mg p.o. daily for 5 days. 2. Flomax 0.4 mg p.o. at bedtime. 3. Norvasc 5 mg daily. 4. Losartan 100 mg daily. 5. Zocor 40 mg at bedtime. 6. Anton 5/325 one tab p.o. q.6 hours p.r.n. He will need to follow up urology team and primary care doctor team in the clinic in the next 1 to 2 weeks. FINAL DIAGNOSES: 1. Right groin pain, nausea, vomiting secondary to right testicular torsion and right kidney stone status post detorsion surgery by urology team and passing kidney stone. 2. Mild hypernatremia, resolved. 3. Uncontrolled high blood pressure, controlled now. 4. Numerous nonobstructing renal calculi. 5. Hypokalemia, status post repletion. Time spent with patient, 40 minutes. Dictated By: DORIS AGUILLON Conf#: [id number] DID#: [id number]
[2016-12-06 19:22] LABS: SPECIMEN SOURCE Kidney
== END 2016-12-05 11:30 | disposition home or self-care (01) | DRG 729 ==
LOC: E/R 14:48 → MS1 19:28 → OBSVTOIN 12-04 17:21
PROVIDERS: ADMIT Family Medicine; ATTEND Family Medicine
PROC: 0VN90ZZ Release Right Testis, Open Approach (ICD-10-PCS; principal; 2016-12-02 18:00)
DX: N44.00 Torsion of testis, unspecified (principal); N13.2 Hydronephrosis with renal and ureteral calculous obstruction; E87.0 Hyperosmolality and hypernatremia; E78.5 Hyperlipidemia, unspecified; R03.0 Elevated blood-pressure reading, without diagnosis of hypertension; E87.6 Hypokalemia
CPT/HCPCS: 36415; 74000; 74176; 76870; 80048; 80053; 80076; 81001; 81003; 82355; 83690; 83735; 85025; 87040; 87086; 94664; 96374; 96375; G0378; J0131; J0360; J0690; J0696; J1100; J1170; J1885; J2175; J2250; J2270; J2405; J2765; J3010; J3480; J7030